=== PATIENT | male | born 1975 | race Caucasian/White ===

== ENCOUNTER 2017-03-05 18:13 | Emergency (ER) | payer MEDICAID, OTHER ==
[2017-03-05 19:27] LABS: HEMATOCRIT 44.6 % (41.0-60)
[2017-03-05 19:43] LABS: INR 1.32 (0.5-1.4); PROTHROMBIN TIME (TEST) 13.9 SECONDS (9.5-11.5)
[2017-03-05 19:47] LABS: ALBUMIN 3.5 gm/dL (4.2-5.5); ALKALINE PHOSPHATASE 75 U/L (34-104); ANION GAP 7.3 (7.0-16.0); BILIRUBIN,TOTAL 1.5 mg/dL (0.3-1.0); BUN - UREA NITROGEN 8 mg/dL (7-25); CALCIUM SERUM 9.3 mg/dL (8.6-10.3); CARBON DIOXIDE 29.2 mEq/L (21.0-31.0); CHLORIDE 100 mEq/L (98-107); CREATININE - SERUM 0.9 mg/dL (0.7-1.3); GFR AFRICAN-AMERICAN > 60.0 ml/min (>90); GFR NON AFRICAN-AMERICAN > 60.0 ml/min; GLUCOSE 116 mg/dL; POTASSIUM SERUM 3.5 mEq/L (3.5-5.1); SGOT 31 U/L (13-39); SGPT/ALT 21 U/L (7-52); SODIUM SERUM 133 mEq/L (136-145); TOTAL PROTEIN,SERUM 7.1 gm/dL (6.0-8.3)
[2017-03-05 20:08] LABS: HEMOGLOBIN 14.5 gm/dL (12-16); MEAN CELL VOLUME 90.6 fl (80-99); MEAN CORPUSCULAR HEMOGLOBIN 29.4 pg (26.0-30.0); MEAN CORPUSCULAR HGB CONC 32.5 pg (28.0-36.0); MEAN PLATELET VOLUME 8.1 fl; RED BLOOD COUNT 4.93 Mil/cmm (4.30-5.70); RED CELL DISTRIBUTION WIDTH 15.4 % (11.5-20.0)
[2017-03-05 20:20] LABS: MANUAL DIFF REQUIRED? YES; PLATELET COUNT 28 Th/cmm (150-400); WHITE BLOOD COUNT 2.2 Th/cmm (4.8-10.8)
[2017-03-05 20:25] LABS: TOTAL CELLS COUNTED 100
[2017-03-05 20:41] LABS: BAND NEUTROPHILE 0 % (0-10); EOSINOPHIL 3 % (0-5); LYMPHOCYTE 25 % (20-50); MONOCYTE 14 % (2-10); NEUTROPHILS 58 % (40-80)
[2017-03-05 20:42] LABS: PLATELET ESTIMATE DECREASED PLATELETS (NORMAL)
[2017-03-05 20:43] LABS: PLATELET MORPHOLOGY GIANT PLATELETS SEEN (NORMAL)
[2017-03-05 21:45] LABS: AMPHETAMINE URINE NEGATIVE (NEGATIVE); BARBITURATES URINE NEGATIVE (NEGATIVE); BENZODIAZEPINES QUAL URINE POSITIVE (NEGATIVE); CANNABINOID THC NEGATIVE (NEGATIVE); COCAINE METABOLITE QUAL URINE NEGATIVE (NEGATIVE); METHADONE URINE NEGATIVE (NEGATIVE); METHAMPHETAMINES QUAL URINE NEGATIVE (NEGATIVE); OPIATES (MORPHINE) QUAL. URINE NEGATIVE (NEGATIVE); PHENCYCLIDINE (PCP) URINE NEGATIVE (NEGATIVE); TRICYCLICS (TCA) QUAL. URINE NEGATIVE (NEGATIVE)
[2017-03-06] MEDS ORDERED: Pantoprazole 40 mg EC Tab PO STA (02:06)
[2017-03-06] MEDS ORDERED: Pantoprazole 40 mg EC Tab PO SCH (02:15)
--- NOTE | 2017-03-06 07:58 | ED Physician Chart ---
ED Chief Complaint/HPI - Patient Information Date Seen:: 03/05/17 Time Seen:: 23:30 Chief Complaint:: Abnormal labs with low platelet and WBC History of Present Illness:: 42 yo male with long history of alcohol abuse, was admitted to alcohol rehab for 1 week. His multiple blood work at the rehab showed extremely low platelet and WBC. The patient was told to have liver cirrhosis and was brought to ER for further evaluation. Allergies:: Allergies Allergy/AdvReac Type Severity Reaction Status Date / Time No Known Allergies Allergy Verified 03/05/17 18:25 Vitals:: Vital Signs - 8 hr 03/06/17 03/06/17 03/06/17 02:00 02:09 02:33 Temp 98.0 F HR 74 76 RR 74 18 BP 129/82 129/82 127/74 O2 Sat % 100 ED Review of Systems - Review of Systems General/Constitutional: No fever, No chills Skin: No skin lesions Head: No headache Eyes: No loss of vision ENT: No earache Neck: No neck pain Cardio Vascular: No chest pain Pulmonary: No SOB GI: No nausea, No vomiting G/U: No dysuria Musculoskeletal: No bone or joint pain Psychiatric: Other (alcohol abuse) ED Past Medical History - Past Medical History Past Medical History: DM Social History: Non Smoker, Alcohol, Illicit Drug Use Surgical History: None Family Medical History - Family Member Mother History Unknown: Yes ED Physical Exam - Physical Examination General/Constitutional: Awake, Alert Head: Atraumatic Eyes: PERRL, EOMI Skin: No skin lesions ENMT: Nasal exam nl Neck: Full ROM w/o pain Respiratory: Clear to Auscultation, No Wheeze/Rhonchi/Rales Cardio Vascular: RRR, No murmur, gallop, rubs, NL S1 S2 Other GI comments:: mild distended Extremities: No tenderness or effusion Neuro/Psych: No focal deficits ED Labs/Radiology/EKG Results - Lab Results Results: Laboratory Tests 03/05/17 03/05/17 03/05/17 19:19 19:19 19:19 WBC 2.2 L* RBC 4.93 Hgb 14.5 Hct 44.6 MCV 90.6 MCH 29.4 MCHC Differential 32.5 RDW 15.4 Plt Count 28 L* MPV 8.1 Band Neutrophils % 0 Neutrophils (Manual) 58 Lymphocytes 25 Monocytes 14 H Eosinophils 3 Platelet Estimate DECREASED PLATELETS Platelet Morphology GIANT PLATELETS SEEN RBC Morph Micro Appear NORMAL PT 13.9 H INR 1.32 Sodium Potassium Chloride Carbon Dioxide Anion Gap BUN Creatinine Est GFR ( Amer) Est GFR (Non-Af Amer) BUN/Creatinine Ratio Glucose Whole Bld Lactic Acid 1.74 Calcium Total Bilirubin AST ALT Alkaline Phosphatase Ammonia Total Protein Albumin Globulin Albumin/Globulin Ratio Urine Opiates Screen Urine Methadone Screen Ur Barbiturates Screen Ur Tricyclics Screen Ur Phencyclidine Scrn Amphetamines Screen U Methamphetamines Scrn U Benzodiazepines Scrn U Cocaine Metab Screen U Cannabinoids Screen Ethyl Alcohol 03/05/17 03/05/17 03/05/17 19:19 19:29 19:30 WBC RBC Hgb Hct MCV MCH MCHC Differential RDW Plt Count MPV Band Neutrophils % Neutrophils (Manual) Lymphocytes Monocytes Eosinophils Platelet Estimate Platelet Morphology RBC Morph Micro Appear PT INR Sodium 133 L Potassium 3.5 Chloride 100 Carbon Dioxide 29.2 Anion Gap 7.3 BUN 8 Creatinine 0.9 Est GFR ( Amer) > 60.0 Est GFR (Non-Af Amer) > 60.0 BUN/Creatinine Ratio 8.9 Glucose 116 Whole Bld Lactic Acid Calcium 9.3 Total Bilirubin 1.5 H AST 31 ALT 21 Alkaline Phosphatase 75 Ammonia 47 Total Protein 7.1 Albumin 3.5 L Globulin 3.6 Albumin/Globulin Ratio 1.0 Urine Opiates Screen NEGATIVE Urine Methadone Screen NEGATIVE Ur Barbiturates Screen NEGATIVE Ur Tricyclics Screen NEGATIVE Ur Phencyclidine Scrn NEGATIVE Amphetamines Screen NEGATIVE U Methamphetamines Scrn NEGATIVE U Benzodiazepines Scrn POSITIVE H U Cocaine Metab Screen NEGATIVE U Cannabinoids Screen NEGATIVE Ethyl Alcohol < 10 ED Assessment - Assessment General Assessment: Thrombocytopenia, leukopenia, hyponatremia, liver cirrhosis Critical Care Time: 45 min Excludes all billable procedures: Yes This condition life threatening/high prob of deterioration: No Assessment/Comments:: CBC, CMP, UA, urine drug screen Spoke with [facility] physician and recommended discharge patient back to the rehab and 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 Is Septic Shock (SBP<90, OR Lactate>4 mmol\L) present?: No - <6hrs of presentation: Vital Signs: Vital Signs - 8 hr 03/06/17 03/06/17 03/06/17 02:00 02:09 02:33 Temp 98.0 F HR 74 76 RR 74 18 BP 129/82 129/82 127/74 O2 Sat % 100 ED Reassessment (Disposition) - Reassessment Reassessment Condition:: Improved - Aftercare/Follow up Instructions Aftercare/Follow-Up Instructions:: Counseled pt regarding lab results/diagnosis & need follow up, Refer to Discharge Instructions - Patient Disposition Discharge/Transfer:: Residential/[facility] Care ED Discharge Plan - Patient Disposition Admit/Discharge/Transfer: PT DISCHARGED HOME Condition at Disposition: Improved Prescriptions: Carvedilol [Coreg] 3.125 mg PO BID #60 tab Pantoprazole [Protonix] 40 mg PO DAILY #30 ect Instructions: Leukocytosis, Cirrhosis, Thrombocytopenia, [id number]
== END 2017-03-06 03:08 | disposition home or self-care (01) ==
LOC: ER 18:13
DX: D69.6 Thrombocytopenia, unspecified (principal); E11.9 Type 2 diabetes mellitus without complications
CPT/HCPCS: 99291; 96374; 36415; 83605; 80307; 85007; 85027; 85610; 80320; 82140; 80053; 87081; 87040; C9113; Z7502; Z7610